=== PATIENT | male | born 1995 | race Caucasian/White ===

== ENCOUNTER 2017-01-04 20:37 | Emergency (ER) | payer OTHER ==
[~2017-01-04] VITALS: Ht 180.3 cm; Wt 75.9 kg
[2017-01-04 20:52] VITALS: TEMP 36.8; Ht 180.3 cm; Wt 75.9 kg
--- NOTE | 2017-01-04 21:41 | EMERGENCY ROOM VISIT NOTE ---
History First contact with patient: 21:12 Chief Complaint: HEAD INJURY (MINOR) Stated Complaint: HEADACHE History of Present Illness The patient is a 21 year old male who presents to the Emergency Room via private vehicle with complaints of "headache". The patient states that he is playing hockey yesterday and was struck in the left lower jaw by a hockey stick. He did not lose consciousness, but since then has had a headache, nausea and lack of concentration as he tried to study for tests tomorrow. He states he has not vomited, and the headache is worse with concentration. He denies any neck pain, or history of concussions. There is slight light sensitivity. Review of Systems A complete 10-point Review of Systems was discussed with the patient, with pertinent positives and negatives listed in the History of Present Illness. All remaining Review of Systems questions can be considered negative unless otherwise specified. Past Medical/Surgical History No pertinent. Family History No pertinent. Social History Smoking Status: Never Smoker Patient lives locally and is a [employer] student. He participates in club hockey. Current/Historical Medications No Active Prescriptions or Reported Meds Physical Exam Vital Signs Date Time Temp Pulse Resp B/P (MAP) Pulse Ox O2 Delivery O2 Flow Rate FiO2 01/04/17 21:48 83 20 149/68 99 01/04/17 20:55 18 01/04/17 20:52 36.8 107 18 150/81 100 Room Air Physical Exam VITAL SIGNS - Vital signs and nursing notes were reviewed. Stable. GENERAL -21-year-old male appearing his stated age. Communicates well with provider and answers questions appropriately. SKIN - Gross examination of the entire body surface demonstrates no lacerations to the body surface. There is a 1 cm superficial abrasion noted to the patient' s left inferior jaw between the chain and angle of the mandible on the left HEAD - Normocephalic, Atraumatic. No Yanes's Sign or Raccoon's Eyes. No depressed skull fractures palpable. EYES - PERRL with EOMI bilaterally. Without subconjunctival hemorrhage. No hyphema EARS - No deformities of external structures noted on gross examination bilaterally. No hemotympanum present. No tympanic perforation noted. Handle of malleus, umbo, cone of light, pars tensa/flaccid all easily visualized. NOSE - Midline and without cyanosis. No epistaxis or clear watery discharge noted. Septum midline without deviation. No septal hematoma noted. No overlying ecchymosis noted. MOUTH/OROPHARYNX - Without perioral cyanosis. Tongue midline with equal elevation of palate bilaterally. No blood noted in the oropharynx. No tonsillar hypertrophy, erythema, or exudates noted. No dental fractures noted. NECK - no tenderness to palpation over the cervical spinous processes. No cervical paraspinal muscle tenderness noted. EXTREMITIES - No gross deformities noted of the extremities. +5/5 strength noted in UE/LE bilaterally. NEUROLOGIC - Cranial nerves II through XII grossly intact. Sensory intact to light touch throughout. Patellar reflexes +2/4. PSYCH - A&O, and cooperates fully with examiner. Pt is very pleasant and interacts well with examiner. Medical Decision & Procedures Medical Decision Patient was seen and evaluated as above. He presents to us today with a left jaw injury causing a headache. On my examination there is only minimal tenderness to palpation overlying the left jaw, no evidence of fracture. No step-off. I suspect he is experiencing a concussion. There was no loss of consciousness, no vomiting, and his mental status is excellent. He was offered CT scan of the head, but after discussing benefits versus risks the decision was made to not scan. I do not suspect any intracranial bleeding. I again suspect he is likely experiencing a concussion. He was thoroughly educated upon management, and the importance of follow-up. He was given number for the local clinic manages concussions well. He was educated upon management, educated upon worrisome symptoms which to return, had questions answered prior to discharge, and was discharged home in good condition. In the evaluation and treatment of this patient, the following differential diagnoses were considered: Concussion, Contrecoup Injury, Brain Tumor, Depression, Encephalitis, Hypothyroidism, Meningitis, CVA, TIA, Migraine, Cluster Headache, Intracranial Abnormality, Intracranial Hemorrhage, Subdural Hematoma, Subarachnoid Hemorrhage, Hydrocephalus. Impression Primary Impression: Closed head injury Additional Impression: Concussion Departure Information Dispostion Home / Self-Care Condition GOOD Prescriptions No Active Prescriptions or Reported Meds Referrals No Doctor, Assigned (PCP) Patient Instructions ED Concussion, My [facility] Additional Instructions You have been treated in the Emergency Department for a Closed Head Injury. For pain control, you can use the following [id number] medicines (if >12 yo): - Regular strength (325mg/tab) Tylenol (acetaminophen) 2 tabs every 4-6 hours as needed. Do not exceed 12 tablets in a 24 hour period. Avoid taking more than 3 grams (3000 mg) of Tylenol per day. This includes any other sources of acetaminophen you may take on a regular basis. - Regular strength (200 mg/tab) Advil (ibuprofen) 1-2 tabs every 4-6 hours as needed. Do not exceed a dose of 3200 mg per day. You should relax in a quiet, dark place for the rest of the day. Avoid any possible triggers including: cigarette smoke, caffeine, nicotine, chocolate, wine, beer, loud noises or music, or bright lights. You should schedule a follow-up appointment in 2-3 days with your Primary Care Provider or established Neurologist for further evaluation and treatment of your Headache. ([facility]) Please follow up with the concussion clinic for further evaluation and treatment of your injury: [facility] [phone] [place] [address] You should NOT return to athletic play until reevaluated by your General Ledger Accountant. You should fully comply with their standard protocol regarding head injuries. Your General Ledger Accountant OR Primary Care Provider will have the final say in your return to athletic play. This timeframe should be AT LEAST 1 week AFTER the date of last symptoms experienced! This is ESSENTIAL to allow for adequate brain healing time and for reduced risk of re-injury. Return to the Emergency Department if your current symptoms worsen despite treatment course outlined above, or if you develop any of the following symptoms : intractable pain despite aforementioned treatment course, visual disturbances , loss of vision, unilateral weakness or facial drooping, slurring of speech, loss of coordination, or loss of consciousness. Problem Qualifiers
[2017-01-04 21:48] VITALS: BP 149/68; PULSE 83; O2SAT 99
== END 2017-01-04 21:52 | disposition home or self-care (01) ==
LOC: C.EDB 20:40 → C.EDD 21:52
DX: S06.0X0A Concussion without loss of consciousness, initial encounter (principal); W50.0XXA Accidental hit or strike by another person, initial encounter; Y93.65 Activity, lacrosse and field hockey